=== PATIENT | male | born 1965 | race Caucasian/White ===

== ENCOUNTER 2018-09-16 10:35 | Inpatient (IN) | payer OTHER ==
[2018-09-16] MEDS ORDERED: SODIUM CHLORIDE 0.9% 1,000 ML IV STA (10:47)
[2018-09-16] MEDS ORDERED: LORazepam 2 MG/ML INJ IV STA ×2 (10:48→13:19)
[2018-09-16 10:50] LABS: Glucose,Whole Blood 150 mg/dL (75-99)
--- NOTE | 2018-09-16 10:56 | ED ---
Chest Pain HPI - General Source: patient, EMS, RN notes reviewed Mode of arrival: EMS Limitations: no limitations <Mark Lara - Last Filed: 09/16/18 14:49> <Trung Bowser - Last Filed: 09/16/18 15:30> - General Chief Complaint: Chest Pain Stated Complaint: chest pain Time Seen by Provider: 09/16/18 10:37 - History of Present Illness Initial Comments: This a 53-year-old male presents emergency Department chief complaint of chest pain or shortness breath. Patient states symptoms started this morning and were not exacerbated by anything. Patient states it's centralized chest pain nonradiating. Patient denies any back pain, headache, dizziness denies any abdominal pain including nausea and diarrhea constipation. Patient was given aspirin and 3 nitro by EMS states that it did help for bit but has returned. Patient denies any headache, dizziness, neck pain or neck stiffness. He does admit to slight cough. Patient denies any other complaints this time does have a history of hypertension and hyperlipidemia. Patient is not a daily smoker. (Mark Lara) - Related Data Home Medications Medication Instructions Recorded Confirmed Atenolol 100 mg PO DAILY 09/16/18 09/16/18 Cetirizine HCl [Zyrtec] 10 mg PO DAILY 09/16/18 09/16/18 Famotidine [Pepcid] 20 mg PO BID 09/16/18 09/16/18 Ferrous Sulfate [Feosol] 325 mg PO BID 09/16/18 09/16/18 Fluticasone Nasal [place] [Flonase 2 spr EA NOSTRIL DAILY 09/16/18 09/16/18 Nasal [place]] Ibuprofen [Motrin] 800 mg PO Q6H PRN 09/16/18 09/16/18 Losartan Potassium [Cozaar] 25 mg PO DAILY 09/16/18 09/16/18 amLODIPine [Norvasc] 10 mg PO DAILY 09/16/18 09/16/18 Allergies Allergy/AdvReac Type Severity Reaction Status Date / Time lisinopril AdvReac Cough Verified 09/16/18 10:50 Review of Systems ROS Other: All systems not noted in ROS Statement are negative. <Mark Lara - Last Filed: 09/16/18 14:49> ROS Other: All systems not noted in ROS Statement are negative. <Roskopp,Trung B - Last Filed: 09/16/18 15:30> ROS Statement: Those systems with pertinent positive or pertinent negative responses have been documented in the HPI. Past Medical History Past Medical History: Hypertension History of Any Multi-Drug Resistant Organisms: None Reported Past Psychological History: Anxiety Smoking Status: Never smoker Past Alcohol Use History: Daily Past Drug Use History: None Reported <Mark Lara - Last Filed: 09/16/18 14:49> General Exam Limitations: no limitations General appearance: alert, in no apparent distress Head exam: Present: atraumatic, normocephalic, normal inspection Eye exam: Present: normal appearance, PERRL, EOMI. Absent: scleral icterus, conjunctival injection, periorbital swelling ENT exam: Present: normal exam, normal oropharynx, mucous membranes moist Neck exam: Present: normal inspection, full ROM. Absent: tenderness, meningismus, lymphadenopathy Respiratory exam: Present: wheezes. Absent: normal lung sounds bilaterally, respiratory distress, rales, rhonchi, stridor Cardiovascular Exam: Present: normal rhythm, tachycardia, normal heart sounds. Absent: systolic murmur, diastolic murmur, rubs, gallop, clicks GI/Abdominal exam: Present: soft, normal bowel sounds. Absent: distended, tenderness, guarding, rebound, rigid <Mark Lara - Last Filed: 09/16/18 14:49> General appearance: alert, anxious, in distress Head exam: Present: atraumatic, normocephalic, normal inspection Eye exam: Present: normal appearance, PERRL, EOMI. Absent: scleral icterus, conjunctival injection, periorbital swelling ENT exam: Present: normal exam, mucous membranes moist Neck exam: Present: normal inspection. Absent: tenderness, meningismus, lymphadenopathy Respiratory exam: Present: accessory muscle use, decreased breath sounds, prolonged expiratory. Absent: normal lung sounds bilaterally, respiratory distress, rales, rhonchi, stridor Cardiovascular Exam: Present: normal rhythm, tachycardia, normal heart sounds. Absent: systolic murmur, diastolic murmur, rubs, gallop, clicks GI/Abdominal exam: Present: soft, normal bowel sounds. Absent: distended, tenderness, guarding, rebound, rigid Extremities exam: Present: normal inspection, full ROM, normal capillary refill. Absent: tenderness, pedal edema, joint swelling, calf tenderness Back exam: Present: normal inspection Neurological exam: Present: alert, oriented X3, CN II-XII intact Psychiatric exam: Present: normal affect, normal mood Skin exam: Present: warm, dry, intact, normal color. Absent: rash <Trung Bowser - Last Filed: 09/16/18 15:30> Course <Mark Lara - Last Filed: 09/16/18 14:49> <Trung Bowser - Last Filed: 09/16/18 15:30> Vital Signs 09/16/18 09/16/18 09/16/18 10:37 10:44 11:47 Temperature 100.1 F H Pulse Rate 114 H 101 H Respiratory 34 H 36 H 32 H Rate Blood Pressure 111/92 O2 Sat by Pulse 97 Oximetry 09/16/18 09/16/18 11:57 13:48 Temperature 99.8 F H Pulse Rate 103 H 77 Respiratory 28 H 38 H Rate Blood Pressure 171/99 O2 Sat by Pulse 92 L Oximetry - Reevaluation(s) Reevaluation #1: 09/16/18 12:11 multiple attempts at EKG ounces at this time secondary to patient being very anxious, having panic attack. (Mark Lara) Reevaluation #2: 09/16/18 13:24 patient's lactate is elevated along with an anion gap there is no clear evidence for infection at this time for sepsis chest x-ray, CT of the chest negative for acute cardiopulmonary process. Patient does not have any evidence of abdominal pain and no dysuria. Urine was just obtained waiting for results at this time, CT that those were ordered given patient's lactic acidosis. (Mark Lara) Reevaluation #3: 09/16/18 15:28 Spoke with ICU regarding admission, patient will be admitted to ICU (Trung Bowser) Reevaluation #4: 09/16/18 15:28 Patient is improving symptomatically, improvement with IV hydration and breathing treatments. Multiple metabolic abnormalities. (Trung Bowser) Procedures - Sepsis Sepsis Focused Exam #1 Time Sepsis Criteria Met: 14:56 <Trung Bowser - Last Filed: 09/16/18 15:30> Chest Pain MDM <Mark Lara - Last Filed: 09/16/18 14:49> <Trung Bowser - Last Filed: 09/16/18 15:30> - [facility] 53-year-old male presented for chest pain, fever. Patient will be admitted to ICU for hyponatremic, pending DTs, chest pain, lumbar burst fracture (Mark Lara) 53 male to ER for evaluation of chest pain fever shortness of breath. Patient has significant metabolic abnormalities found, will admit to ICU for further consult evaluation. Patient has history of significant alcohol disease, likely alcohol ketoacidosis like his hyponatremia secondary to be upon a tito, patient is fall with lumbar burst fracture. We'll admit for pending DVTs, treatment of lactic acidosis, at this point fevers likely related to DTs but will cover for antibiotics (Trung Bowser) Critical Care Time Critical Care Time: Yes Total Critical Care Time: 35 <Mark Lara - Last Filed: 09/16/18 14:49> Critical Care Time: Total of 35 minutes of critical care time more initially used to evaluate the patient, reviewed past medical history, review vitals and assess the patient. Labs, x-ray, EKG were initially ordered patient's found to have a lactic of 7.3 d-dimer 3.24 CT angios chest was ordered no acute cardiopulmonary process was identified. Patient did have noted fever further labs were added including urinalysis, acetaminophen, systolic acid, serum osmole, urine osmole secondary to hyponatremia. CT then pelvis revealed burst fracture and which the patient did state that he fell a few days ago. He is neurologically intact. Patient states discussed with hospitalist will be admitted to ICU policy and planning manager was updated on lab results and patient. Patient with consult to nephrology for hyponatremia. Patient was placed on seawall, Ativan protocol secondary to pending DTs with alcohol abuse. (Mark Lara) Disposition <Mark Lara - Last Filed: 09/16/18 14:49> Is patient prescribed a controlled substance at d/c from ED?: No <Trung Bowser - Last Filed: 09/16/18 15:30> Clinical Impression: Chest pain, Hyponatremia, Dehydration, Alcohol abuse, Lactic acidosis, Burst fracture of lumbar vertebra, Alcoholic ketoacidosis, Atypical chest pain Narrative: pending DTs (Mark Lara) Disposition: ADMITTED IP TO THIS HOSP Condition: Critical Referrals: [facility],Clinic [Primary Care Provider] - 1-2 days
[2018-09-16] MEDS ORDERED: ONDANSETRON 4 MG/2 ML VIAL IVP STA (11:15)
[2018-09-16] MEDS ORDERED: MORPHINE SULFATE 4 MG/ML SYRINGE IVP STA (11:15)
[2018-09-16] MEDS ORDERED: IPRATROPIUM-ALBUTEROL 3 ML NEB INHALATION STA (11:15)
[2018-09-16 11:40] LABS: ALT 68 U/L (21-72); AST 84 U/L (17-59); Albumin 4.8 g/dL (3.5-5.0); Alcohol <10 mg/dL; Alkaline Phosphatase 97 U/L (38-126); Anion Gap 21 mmol/L; Blood Urea Nitrogen 5 mg/dL (9-20); Calcium 9.3 mg/dL (8.4-10.2); Carbon Dioxide 18 mmol/L (22-30); Creatine Kinase 849 U/L (55-170); Glucose 126 mg/dL (74-99); Lipase 92 U/L (23-300); Magnesium 1.3 mg/dL (1.6-2.3); Potassium 5.3 mmol/L (3.5-5.1); Total Bilirubin 2.3 mg/dL (0.2-1.3); Total Protein 8.4 g/dL (6.3-8.2)
[2018-09-16 11:45] LABS: Basophils % (A) 0 %; Eosinophils # (A) 0.1 k/uL (0-0.7); Eosinophils % (A) 1 %; HCT 27.9 % (39.0-53.0); HGB 8.5 gm/dL (13.0-17.5); Hypochromasia Marked; Lymphocytes # (A) 0.5 k/uL (1.0-4.8); Lymphocytes % (A) 4 %; MCH 21.1 pg (25.0-35.0); MCHC 30.4 g/dL (31.0-37.0); MCV 69.2 fL (80.0-100.0); Microcytosis Marked; Monocytes # (A) 0.7 k/uL (0-1.0); Monocytes % (A) 6 %; Neutrophils # (A) 11.4 k/uL (1.3-7.7); Neutrophils % (A) 88 %; Platelet Count 312 k/uL (150-450); Poikilocytosis Slight; RBC 4.03 m/uL (4.30-5.90); RDW 15.5 % (11.5-15.5); WBC 12.9 k/uL (3.8-10.6)
[2018-09-16 11:52] LABS: Chloride 74 mmol/L (98-107); Sodium 113 mmol/L (137-145)
[2018-09-16 11:53] LABS: INR 1.1 (<1.2); Partial Thromboplastin Time 25.8 sec (22.0-30.0); Prothrombin Time 11.2 sec (9.0-12.0)
[2018-09-16] MEDS ORDERED: MAGNESIUM OXIDE 400 MG TAB PO STA (11:54)
[2018-09-16 12:00] LABS: D-Dimer 3.24 mg/L FEU (<0.60)
[2018-09-16] MEDS ORDERED: SODIUM CHLORIDE 0.9% 1,000 ML IV SCH (12:00)
[2018-09-16] MEDS ORDERED: SODIUM CHLORIDE 0.9% 500 ML 500 ML IV ONE (12:17)
[2018-09-16] MEDS ORDERED: SODIUM CHLORIDE 0.9% 1,000 ML IV ONE (12:17)
--- NOTE | 2018-09-16 12:55 | CT ---
EXAMINATION TYPE: CT chest angio for PE DATE OF EXAM: 09/16/2018 COMPARISON: None. HISTORY: Chest pain CT DLP: 427.8 mGycm Automated exposure control for dose reduction was used. CONTRAST: CT Chest for pulmonary embolism performed with with IV Contrast, patient injected with 75 mL of Isovu e 370. FINDINGS: There is atelectatic change present at the right lung base. There are tiny effusions presen t bilaterally. There is no significant axillary, mediastinal or hilar adenopathy. There is no evidence of pulmonary embolus. The aorta is normal in caliber without evidence of dissection. The heart is enlarged. There is no per icardial fluid seen. Visualized portions of the upper abdomen are unremarkable. IMPRESSION: 1. THIS EXAMINATION IS NEGATIVE FOR PULMONARY EMBOLUS. 2. TINY, BILATERAL EFFUSIONS. 3. BIBASILAR ATELECTASIS, GREATER ON THE RIGHT THAN THE LEFT.
--- NOTE | 2018-09-16 12:56 | XR ---
EXAMINATION TYPE: XR chest 2V DATE OF EXAM: 09/16/2018 HISTORY: Chest Pain. REFERENCE: Previous study dated 08/05/2014. FINDINGS: Enlarged. The lungs are clear. Pleural spaces are clear. IMPRESSION: MILD CARDIOMEGALY.
[2018-09-16] MEDS ORDERED: KETOROLAC 30 MG/ML 1 ML VIAL IVP STA (13:26)
[2018-09-16 13:53] LABS: VBG PH 7.35 (7.31-7.41)
[2018-09-16 14:10] LABS: Acetaminophen <10.0 ug/mL; Salicylate 1.3 mg/dL
--- NOTE | 2018-09-16 14:32 | CT ---
EXAMINATION TYPE: CT abdomen pelvis wo con DATE OF EXAM: 09/16/2018 HISTORY: Trouble breathing with pain. CT DLP: 676.3 mGycm. Automated Exposure Control for Dose Reduction was Utilized. TECHNIQUE: CT scan of the abdomen and pelvis is performed without oral or IV contrast. COMPARISON: NONE FINDINGS: Within the limitations of a non-contrast study, the following observations are made. LUNG BASES: Please refer to same day CTA chest study performed approximately 90 minutes earlier for c omplete details on lung bases. LIVER/GB: Liver is diffusely low dense consistent with fatty infiltration. PANCREAS: No significant abnormality is seen. SPLEEN: No significant abnormality is seen. ADRENALS: No significant abnormality is seen. KIDNEYS: Excretion of contrast from recent CTA chest study is seen in both kidneys without hydronephr osis. [place] catheter is decompressing bladder which is thus suboptimally evaluated. Bowel: Evaluation bowel is suboptimal secondary to lack of enteric contrast. No suspicious small or l arge bowel dilatation is clearly seen. Slightly prominent air-filled small and large bowel loops ante riorly are present in the upper abdomen. GENITAL ORGANS: No gross abnormality seen. LYMPH NODES: No greater than 1cm abdominal or pelvic lymph nodes are appreciated. OSSEOUS STRUCTURES: There is acute mild to moderate compression fracture L1 level, I do suspect acute component as there is vertical lucency just left of midline coronal images 71 and sagittal image 61, there is extension to the superior and inferior endplates. There is extension to the anterior endpla te axial image 36. No definitive extension to the posterior endplate is identified. There is minimal posterior retropulsion of the inferior L1 vertebra sagittal image 59 just left of midline mildly effa cing anterolateral thecal sac. OTHER: Small fat-containing right inguinal hernia. Mild vascular calcification of aorta extends into branch vessels. IMPRESSION: 1. There is acute mild to moderate burst type fracture involving the L1 vertebra superior and inferio r endplates as well as anterior endplate, minimal retropulsion of the left posterior aspect effacing anterolateral spinal canal is noted.
[2018-09-16 14:41] LABS: Appearance,Urine Clear (Clear); Bilirubin,Urine Negative (Negative); Blood,Urine Negative (Negative); Color,Urine Light Yellow; Glucose,Urine (UA) Negative (Negative); Ketones,Urine 1+ (Negative); Leukocyte Esterase,Urine Negative (Negative); Nitrite,Urine Negative (Negative); Protein,Urine Negative (Negative); Urobilinogen,Urine <2.0 mg/dL (<2.0)
[2018-09-16] MEDS ORDERED: LORazepam 2 MG/ML INJ IV PRN ×2 (14:53)
[2018-09-16] MEDS ORDERED: THIAMINE 100 MG/ML 2 ML VIAL IM STA (14:53)
[2018-09-16] MEDS ORDERED: NALOXONE 0.4 MG/ML 1 ML VIAL IV PRN (14:53)
[2018-09-16] MEDS ORDERED: ACETAMINOPHEN TAB 325 MG TAB PO PRN (14:53)
--- NOTE | 2018-09-16 14:57 | ED ---
Medical Decision Making - Lab Data Result diagrams: 09/16/18 11:14 09/16/18 11:14 Lab Results 09/16/18 09/16/18 09/16/18 Range/Units 10:45 11:14 11:14 WBC 12.9 H (3.8-10.6) k/uL RBC 4.03 L (4.30-5.90) m/uL Hgb 8.5 L (13.0-17.5) gm/dL Hct 27.9 L (39.0-53.0) % MCV 69.2 L (80.0-100.0) fL MCH 21.1 L (25.0-35.0) pg MCHC 30.4 L (31.0-37.0) g/dL RDW 15.5 (11.5-15.5) % Plt Count 312 (150-450) k/uL Neutrophils % 88 % Lymphocytes % 4 % Monocytes % 6 % Eosinophils % 1 % Basophils % 0 % Neutrophils # 11.4 H (1.3-7.7) k/uL Lymphocytes # 0.5 L (1.0-4.8) k/uL Monocytes # 0.7 (0-1.0) k/uL Eosinophils # 0.1 (0-0.7) k/uL Basophils # 0.0 (0-0.2) k/uL Hypochromasia Marked Poikilocytosis Slight Microcytosis Marked PT (9.0-12.0) sec INR (<1.2) APTT (22.0-30.0) sec D-Dimer (<0.60) mg/L FEU VBG pH (7.31-7.41) VBG pCO2 (37-51) mmHg VBG HCO3 (24-28) mmol/L Sodium 113 L* (137-145) mmol/L Potassium 5.3 H (3.5-5.1) mmol/L Chloride 74 L* (98-107) mmol/L Carbon Dioxide 18 L (22-30) mmol/L Anion Gap 21 mmol/L BUN 5 L (9-20) mg/dL Creatinine 0.80 (0.66-1.25) mg/dL Est GFR (CKD-EPI)AfAm >90 (>60 ml/min/1.73 sqM) Est GFR (CKD-EPI)NonAf >90 (>60 ml/min/1.73 sqM) Glucose 126 H (74-99) mg/dL POC Glucose (mg/dL) 150 H (75-99) mg/dL POC Glu Industrial Engineering Technician ID Jamaaljuly Plasma Lactic Acid [place] (0.7-2.0) mmol/L Calcium 9.3 (8.4-10.2) mg/dL Magnesium 1.3 L (1.6-2.3) mg/dL Total Bilirubin 2.3 H (0.2-1.3) mg/dL AST 84 H (17-59) U/L ALT 68 (21-72) U/L Alkaline Phosphatase 97 (38-126) U/L Creatine Kinase 849 H (55-170) U/L Troponin I (0.000-0.034) ng/mL Total Protein 8.4 H (6.3-8.2) g/dL Albumin 4.8 (3.5-5.0) g/dL Lipase 92 (23-300) U/L Urine Color Urine Appearance (Clear) Urine pH (5.0-8.0) Ur Specific [place] (1.001-1.035) Urine Protein (Negative) Urine Glucose (UA) (Negative) Urine Ketones (Negative) Urine Blood (Negative) Urine Nitrite (Negative) Urine Bilirubin (Negative) Urine Urobilinogen (<2.0) mg/dL Ur Leukocyte Esterase (Negative) Salicylates mg/dL Acetaminophen ug/mL Serum Alcohol <10 mg/dL 09/16/18 09/16/18 09/16/18 Range/Units 11:14 11:14 11:14 WBC (3.8-10.6) k/uL RBC (4.30-5.90) m/uL Hgb (13.0-17.5) gm/dL Hct (39.0-53.0) % MCV (80.0-100.0) fL MCH (25.0-35.0) pg MCHC (31.0-37.0) g/dL RDW (11.5-15.5) % Plt Count (150-450) k/uL Neutrophils % % Lymphocytes % % Monocytes % % Eosinophils % % Basophils % % Neutrophils # (1.3-7.7) k/uL Lymphocytes # (1.0-4.8) k/uL Monocytes # (0-1.0) k/uL Eosinophils # (0-0.7) k/uL Basophils # (0-0.2) k/uL Hypochromasia Poikilocytosis Microcytosis PT 11.2 (9.0-12.0) sec INR 1.1 (<1.2) APTT 25.8 (22.0-30.0) sec D-Dimer 3.24 H (<0.60) mg/L FEU VBG pH (7.31-7.41) VBG pCO2 (37-51) mmHg VBG HCO3 (24-28) mmol/L Sodium (137-145) mmol/L Potassium (3.5-5.1) mmol/L Chloride (98-107) mmol/L Carbon Dioxide (22-30) mmol/L Anion Gap mmol/L BUN (9-20) mg/dL Creatinine (0.66-1.25) mg/dL Est GFR (CKD-EPI)AfAm (>60 ml/min/1.73 sqM) Est GFR (CKD-EPI)NonAf (>60 ml/min/1.73 sqM) Glucose (74-99) mg/dL POC Glucose (mg/dL) (75-99) mg/dL POC Glu Industrial Engineering Technician ID Plasma Lactic Acid [place] 7.9 H* (0.7-2.0) mmol/L Calcium (8.4-10.2) mg/dL Magnesium (1.6-2.3) mg/dL Total Bilirubin (0.2-1.3) mg/dL AST (17-59) U/L ALT (21-72) U/L Alkaline Phosphatase (38-126) U/L Creatine Kinase (55-170) U/L Troponin I <0.012 (0.000-0.034) ng/mL Total Protein (6.3-8.2) g/dL Albumin (3.5-5.0) g/dL Lipase (23-300) U/L Urine Color Urine Appearance (Clear) Urine pH (5.0-8.0) Ur Specific [place] (1.001-1.035) Urine Protein (Negative) Urine Glucose (UA) (Negative) Urine Ketones (Negative) Urine Blood (Negative) Urine Nitrite (Negative) Urine Bilirubin (Negative) Urine Urobilinogen (<2.0) mg/dL Ur Leukocyte Esterase (Negative) Salicylates mg/dL Acetaminophen ug/mL Serum Alcohol mg/dL 09/16/18 09/16/18 09/16/18 Range/Units 11:14 13:15 13:35 WBC (3.8-10.6) k/uL RBC (4.30-5.90) m/uL Hgb (13.0-17.5) gm/dL Hct (39.0-53.0) % MCV (80.0-100.0) fL MCH (25.0-35.0) pg MCHC (31.0-37.0) g/dL RDW (11.5-15.5) % Plt Count (150-450) k/uL Neutrophils % % Lymphocytes % % Monocytes % % Eosinophils % % Basophils % % Neutrophils # (1.3-7.7) k/uL Lymphocytes # (1.0-4.8) k/uL Monocytes # (0-1.0) k/uL Eosinophils # (0-0.7) k/uL Basophils # (0-0.2) k/uL Hypochromasia Poikilocytosis Microcytosis PT (9.0-12.0) sec INR (<1.2) APTT (22.0-30.0) sec D-Dimer (<0.60) mg/L FEU VBG pH 7.35 (7.31-7.41) VBG pCO2 39 (37-51) mmHg VBG HCO3 21 L (24-28) mmol/L Sodium (137-145) mmol/L Potassium (3.5-5.1) mmol/L Chloride (98-107) mmol/L Carbon Dioxide (22-30) mmol/L Anion Gap mmol/L BUN (9-20) mg/dL Creatinine (0.66-1.25) mg/dL Est GFR (CKD-EPI)AfAm (>60 ml/min/1.73 sqM) Est GFR (CKD-EPI)NonAf (>60 ml/min/1.73 sqM) Glucose (74-99) mg/dL POC Glucose (mg/dL) (75-99) mg/dL POC Glu Industrial Engineering Technician ID Plasma Lactic Acid [place] (0.7-2.0) mmol/L Calcium (8.4-10.2) mg/dL Magnesium (1.6-2.3) mg/dL Total Bilirubin (0.2-1.3) mg/dL AST (17-59) U/L ALT (21-72) U/L Alkaline Phosphatase (38-126) U/L Creatine Kinase (55-170) U/L Troponin I (0.000-0.034) ng/mL Total Protein (6.3-8.2) g/dL Albumin (3.5-5.0) g/dL Lipase (23-300) U/L Urine Color Light Yellow Urine Appearance Clear (Clear) Urine pH 6.0 (5.0-8.0) Ur Specific [place] 1.010 (1.001-1.035) Urine Protein Negative (Negative) Urine Glucose (UA) Negative (Negative) Urine Ketones 1+ H (Negative) Urine Blood Negative (Negative) Urine Nitrite Negative (Negative) Urine Bilirubin Negative (Negative) Urine Urobilinogen <2.0 (<2.0) mg/dL Ur Leukocyte Esterase Negative (Negative) Salicylates 1.3 mg/dL Acetaminophen <10.0 ug/mL Serum Alcohol mg/dL Disposition Clinical Impression: Chest pain, Hyponatremia, Dehydration, Alcohol abuse, Lactic acidosis, Burst fracture of lumbar vertebra Disposition: ADMITTED IP TO THIS HOSP Condition: Critical Referrals: [facility],Clinic [Primary Care Provider] - 1-2 days Procedures - Sepsis Sepsis Focused Exam #1 Time Sepsis Criteria Met: 14:56 Sepsis Focused Exam Time: 14:57 Sepsis Focused Exam Complete: Yes Vital Signs & RN Notes Reviewed: Yes Capillary Refill: < 2 Seconds: Fingers, Toes Peripheral Pulses: Normal: Radial (R), Radial (L), Posterior Tibialis (R), Posterior Tibialis (L), Dorsalis Pedis (R), Dorsalis Pedis (L) Skin Color: Normal for Patient Respiratory Exam: normal lung sounds Cardiovascular Exam: tachycardia
[2018-09-16] MEDS ORDERED: LACTATED RINGERS 1,000 ML IV SCH ×3 (15:30→21:15)
[2018-09-16] MEDS: LORazepam 2 MG/ML INJ IV PRN ×2 (15:33→21:44)
[2018-09-16 18:48] LABS: ALT 56 U/L (21-72); AST 105 U/L (17-59); Albumin 4.4 g/dL (3.5-5.0); Alkaline Phosphatase 78 U/L (38-126); Anion Gap 14 mmol/L; Blood Urea Nitrogen 5 mg/dL (9-20); Calcium 8.8 mg/dL (8.4-10.2); Carbon Dioxide 18 mmol/L (22-30); Chloride 82 mmol/L (98-107); Glucose 108 mg/dL (74-99); Magnesium 1.7 mg/dL (1.6-2.3); Phosphorus 2.9 mg/dL (2.5-4.5); Potassium 5.2 mmol/L (3.5-5.1); Total Bilirubin 2.2 mg/dL (0.2-1.3); Total Protein 7.8 g/dL (6.3-8.2)
[2018-09-16 18:52] LABS: Sodium 114 mmol/L (137-145)
[2018-09-16] MEDS: MAGNESIUM SULFATE-D5W PMX 1 GM in DEXTROSE/WATER 1 100ML.BAG IVPB SCH ×2 (20:55→22:14)
[2018-09-16] MEDS ORDERED: LACTATED RINGERS 1,000 ML IV ONE (21:13)
[2018-09-17 03:23] LABS: Glucose,Whole Blood 125 mg/dL (75-99)
[2018-09-17 05:25] LABS: Anisocytosis Slight; Basophils % (A) 0 %; Eosinophils # (A) 0.1 k/uL (0-0.7); Eosinophils % (A) 1 %; HCT 24.3 % (39.0-53.0); HGB 7.3 gm/dL (13.0-17.5); Hypochromasia Marked; Lymphocytes # (A) 0.3 k/uL (1.0-4.8); Lymphocytes % (A) 4 %; MCH 20.6 pg (25.0-35.0); MCV 68.8 fL (80.0-100.0); Mean Platelet Volume 6.1; Microcytosis Marked; Monocytes # (A) 0.4 k/uL (0-1.0); Monocytes % (A) 6 %; Neutrophils # (A) 5.9 k/uL (1.3-7.7); Neutrophils % (A) 88 %; Platelet Count 206 k/uL (150-450); RBC 3.53 m/uL (4.30-5.90); RDW 16.5 % (11.5-15.5); WBC 6.8 k/uL (3.8-10.6)
[2018-09-17 05:40] LABS: Anion Gap 10 mmol/L; Blood Urea Nitrogen 5 mg/dL (9-20); Calcium 8.7 mg/dL (8.4-10.2); Carbon Dioxide 24 mmol/L (22-30); Chloride 88 mmol/L (98-107); Glucose 94 mg/dL (74-99); Magnesium 2.3 mg/dL (1.6-2.3); Phosphorus 2.8 mg/dL (2.5-4.5); Sodium 122 mmol/L (137-145)
[2018-09-17] MEDS: THIAMINE 100 MG TAB PO SCH ×2 (06:59→17:04)
--- NOTE | 2018-09-17 07:03 | XR ---
EXAMINATION TYPE: XR chest 1V portable DATE OF EXAM: 09/17/2018 HISTORY: SOB . REFERENCE: Previous study dated 09/16/2018. FINDINGS: There is some left basilar atelectasis. There is platelike atelectasis in the right midlung zone. The heart is not enlarged. Pleural spaces are clear. IMPRESSION: BILATERAL AREAS OF PLATELIKE ATELECTASIS.
[2018-09-17] MEDS ORDERED: PANTOPRAZOLE 40 MG/10 ML VIAL IV SCH ×2 (09:00)
--- NOTE | 2018-09-17 11:09 | P.CNPUL ---
History of Present Illness Consult date: 09/17/18 Reason for consult: other (Severe hyponatremia) Chief complaint: Chest pain shortness of breath and weakness. History of present illness: This is a 53-year-old white male, history of alcohol abuse, patient drinks beer on a daily basis. Patient was seen in the ER last night mostly complaining of generalized chest pain, weakness, fatigue, malaise, patient has no headaches no blurred vision no dizziness, had no GI symptoms no nausea no vomiting no abdominal pain. Patient is not on any diuretics, he had no symptoms of nausea vomiting or diarrhea. Patient was given aspirin and nitroglycerin by EMS, did not seem to help him much. Patient was evaluated in the ER, and his workup was basically unremarkable except for low sodium, low serum osmolality, and urine osmolality was 228. His sodium on presentation was 113, and this morning is 122. Patient stated to me that he was told in the past that his sodium runs a bit low. But never had an admission for hyponatremia. Again the patient is not on any diuretics, he is not on any psychiatric medications, he is not diabetic, and he is not known to have any history of malignancy. Workup for the chest pain was basically nondiagnostic. Patient was found to have elevated lactic acid and elevated d-dimer. But CT of the chest was negative. No evidence of pulmonary embolism, there was evidence of bibasilar atelectasis. CT of the abdomen showed mild to moderate compression fracture of L1 level. Clinically however the patient had no back pain. In the ER, considering his elevated lactic acid, patient was given fluid boluses in the form of lactated Ringer's. His fluids were placed on hold when his sodium came back at 122 earlier this morning. During my evaluation, the patient was basically asymptomatic. He told me that he felt great, he had no chest pain, no shortness of breath, does not feel weak anymore, and he is basically back to his baseline. However his hemoglobin on admission was 8.5, and it is presently 7.3. Obviously the patient will need workup for his anemia which is likely acute. Patient denies any melena or hematemesis. Denies any history of anemia. Drug screen on admission was negative. Review of Systems Constitutional: Denies weight loss, no fever, no chills. Eyes: Denies blurred vision and diplopia or lid lag. ENT: Denies earache sore throat, Respiratory: Mostly chest pain on presentation to the ER, but presently asymptomatic denies any chest pain cough wheezing or shortness of breath. Cardiovascular: Denies any syncope, denies any palpitations. Endocrine: Denies any symptoms of hyper or hypothyroidism,. Gastrointestinal: Denies any abdominal pain at present, no nausea no vomiting, no melena, no hematemesis. Genitourinary: Denies frequency urgency or hematuria Musculoskeletal: No arthralgia, no myalgia, no limitation in range of motion.. Skin: Denies any erythema or rashes. No pruritus. Neurological: No headache no blurred vision no dizziness no syncope. Past Medical History Past Medical History: Hyperlipidemia, Hypertension Additional Past Medical History / Comment(s): ETOH, Rib Fractures, Frequent Falls History of Any Multi-Drug Resistant Organisms: None Reported Additional Past Surgical History / Comment(s): Pt Poor Historian Past Psychological History: Anxiety Smoking Status: Never smoker Past Alcohol Use History: Daily Past Drug Use History: None Reported Medications and Allergies Home Medications Medication Instructions Recorded Confirmed Type Atenolol 100 mg PO DAILY 09/16/18 09/16/18 History Cetirizine HCl [Zyrtec] 10 mg PO DAILY 09/16/18 09/16/18 History Famotidine [Pepcid] 20 mg PO BID 09/16/18 09/16/18 History Ferrous Sulfate [Feosol] 325 mg PO BID 09/16/18 09/16/18 History Fluticasone Nasal [place] [Flonase 2 spr EA NOSTRIL DAILY 09/16/18 09/16/18 History Nasal [place]] Ibuprofen [Motrin] 800 mg PO Q6H PRN 09/16/18 09/16/18 History Losartan Potassium [Cozaar] 25 mg PO DAILY 09/16/18 09/16/18 History amLODIPine [Norvasc] 10 mg PO DAILY 09/16/18 09/16/18 History Allergies Allergy/AdvReac Type Severity Reaction Status Date / Time lisinopril AdvReac Cough Verified 09/16/18 10:50 Physical Exam Vitals: Vital Signs Temp Pulse Resp BP Pulse Ox 09/17/18 08:00 98.3 F 101 H 24 151/91 99 09/17/18 07:00 85 13 114/90 99 09/17/18 06:00 94 24 123/67 99 09/17/18 05:00 92 14 101/85 99 09/17/18 04:00 98.1 F 76 13 116/70 99 09/17/18 03:00 99 13 131/83 99 09/17/18 02:00 81 11 L 113/77 99 09/17/18 01:00 90 11 L 122/77 98 09/17/18 00:12 104 H 26 H 139/97 99 09/17/18 00:00 97.6 F 93 15 121/76 98 09/16/18 23:30 79 16 117/70 98 09/16/18 23:00 71 19 117/70 96 09/16/18 22:30 85 19 98 09/16/18 22:00 73 15 123/69 100 09/16/18 21:00 71 15 119/69 100 09/16/18 20:30 75 12 130/70 98 09/16/18 20:00 98.5 F 73 14 119/77 100 09/16/18 19:30 75 13 131/71 97 09/16/18 19:00 83 13 141/110 95 09/16/18 18:30 98.4 F 101 H 20 152/101 96 09/16/18 18:00 103 H 16 112/72 96 09/16/18 17:30 99.7 F H 93 15 124/108 97 09/16/18 17:20 98 09/16/18 17:00 99 15 09/16/18 16:58 97 11 L 09/16/18 16:33 97.8 F 80 30 H 123/75 96 09/16/18 13:48 99.8 F H 77 38 H 171/99 92 L 09/16/18 11:57 103 H 28 H 09/16/18 11:47 101 H 32 H Intake and Output 09/16/18 09/17/18 09/17/18 22:59 06:59 14:59 Intake Total 1400 425 Output Total 3730 2150 100 Balance -6107 -0165 -100 Intake: IV 1400 425 Lactated Ringers 1,000 ml 300 225 @ 75 mls/hr IV .[id number] SYLVIE Rx#:[id number] Lactated Ringers 1,000 ml 1000 @ 999 mls/hr IV .Q1H1M SYLVIE Rx#:[id number] Magnesium Sulfate-D5w Pmx 200 1 gm In Dextrose/Water 1 100ml.bag @ 100 mls/hr IVPB Q1H SYLVIE Rx#: [id number] cefTRIAXone 1 gm In 100 Sodium Chloride 0.9% 50 ml @ 100 mls/hr IVPB ONCE STA Rx#:[id number] Output: Urine 3730 2150 100 Uretheral ([place]) 1100 Other: Voiding Method Indwelling Catheter Indwelling Catheter Weight 84.3 kg Physical Exam: Revealed a 53-year-old white male in no distress. Head: Atraumatic normocephalic. HEENT:[Neck is supple.] [No neck masses.] [No thyromegaly.] [No JVD.] PERRLA, EOMI, no icterus. Chest: [Clear throughout, no crackles, no rhonchi, no wheezes.] Cardiac Exam: [Normal S1 and S2, no S3 gallop, no murmur.] Abdomen: [Soft, nontender, no megaly, no rebound, no guarding, normal bowel sounds.] Extremities: [No clubbing, no edema, no cyanosis.] Neurological Exam: [No focal neurologic deficit. Alert oriented 3. Psychiatric: Normal mood, affect and mental status examination. Lymphatics: No lymphadenopathy. Skin: No rashes.] Results - Laboratory Findings CBC and BMP: 09/17/18 04:43 09/17/18 09:17 PT/INR, D-dimer PT 11.2 sec (9.0-12.0) 09/16/18 11:14 INR 1.1 (<1.2) 09/16/18 11:14 D-Dimer 3.24 mg/L FEU (<0.60) H 09/16/18 11:14 Abnormal lab findings: Abnormal Labs 09/16/18 09/16/18 09/16/18 10:45 11:14 11:14 WBC 12.9 H RBC 4.03 L Hgb 8.5 L Hct 27.9 L MCV 69.2 L MCH 21.1 L MCHC 30.4 L RDW Neutrophils # 11.4 H Lymphocytes # 0.5 L D-Dimer VBG HCO3 Sodium 113 L* Potassium 5.3 H Chloride 74 L* Carbon Dioxide 18 L BUN 5 L Creatinine Glucose 126 H POC Glucose (mg/dL) 150 H Osmolality Plasma Lactic Acid [place] Magnesium 1.3 L Total Bilirubin 2.3 H AST 84 H Creatine Kinase 849 H Total Protein 8.4 H Urine Ketones 09/16/18 09/16/18 09/16/18 11:14 11:14 11:14 WBC RBC Hgb Hct MCV MCH MCHC RDW Neutrophils # Lymphocytes # D-Dimer 3.24 H VBG HCO3 Sodium Potassium Chloride Carbon Dioxide BUN Creatinine Glucose POC Glucose (mg/dL) Osmolality 228 L* Plasma Lactic Acid [place] 7.9 H* Magnesium Total Bilirubin AST Creatine Kinase Total Protein Urine Ketones 09/16/18 09/16/18 09/16/18 13:15 13:35 15:30 WBC RBC Hgb Hct MCV MCH MCHC RDW Neutrophils # Lymphocytes # D-Dimer VBG HCO3 21 L Sodium Potassium Chloride Carbon Dioxide BUN Creatinine Glucose POC Glucose (mg/dL) Osmolality Plasma Lactic Acid [place] 3.5 H* Magnesium Total Bilirubin AST Creatine Kinase Total Protein Urine Ketones 1+ H 09/16/18 09/16/18 09/17/18 18:10 23:59 03:12 WBC RBC Hgb Hct MCV MCH MCHC RDW Neutrophils # Lymphocytes # D-Dimer VBG HCO3 Sodium 114 L* 120 L Potassium 5.2 H Chloride 82 L Carbon Dioxide 18 L BUN 5 L Creatinine 0.64 L Glucose 108 H POC Glucose (mg/dL) 125 H Osmolality Plasma Lactic Acid [place] Magnesium Total Bilirubin 2.2 H AST 105 H Creatine Kinase Total Protein Urine Ketones 09/17/18 09/17/18 09/17/18 04:43 04:43 09:17 WBC RBC 3.53 L Hgb 7.3 L Hct 24.3 L MCV 68.8 L MCH 20.6 L MCHC 30.0 L RDW 16.5 H Neutrophils # Lymphocytes # 0.3 L D-Dimer VBG HCO3 Sodium 122 L 125 L Potassium Chloride 88 L Carbon Dioxide BUN 5 L Creatinine 0.61 L Glucose POC Glucose (mg/dL) Osmolality Plasma Lactic Acid [place] Magnesium Total Bilirubin AST Creatine Kinase Total Protein Urine Ketones - Diagnostic Findings CT scan - chest: image reviewed (As noted in HPI.) Assessment and Plan Assessment: Impression: 1 acute hyponatremia, possible underlying SIADH. Although it could be but no tito related hyponatremia and mostly related to excessive consumption of beer. Patient was noted to have hypoosmolar hyponatremia, and his urine osmolality was 228 on admission. With relatively elevated urine sodium. 2 possible chronic anemia since the patient is noted to be anemic today, and he seems to be on iron. This will need to be further investigated. To rule out underlying malignancy. GI consultation will be initiated. And stool will be checked for Hemoccult. In the meantime continue Protonix. 3 history of alcohol abuse, patient drinks beer on a daily basis. Continue alcohol withdrawal protocol. 4 acute lactic acidosis responded well to fluid boluses, no clear-cut evidence of infection, patient is empirically on antibiotics, cultures are pending, will continue antibiotics for now. Until cultures of blood and urine are available. Recommendation: Continue to monitor the patient in the ICU. Nephrology was cons ulted, GI will be consulted, his sodium is being corrected and today's sodium this morning was 122. Presently the patient is not receiving any fluids, may consider even placing the patient on D5W. To slow down the rapid correction of his hyponatremia. We'll continue to follow. Time with Patient: Greater than 30
--- NOTE | 2018-09-17 12:29 | P.HPIM ---
History of Present Illness 53-year-old male with history of alcohol abuse, although although he denied using alcohol on daily basis it appears like patient does drink alcohol on a daily basis as he is having active withdrawals and that he admitted to the [facility] staff he does drink alcohol on a daily basis came in with complains of for epigastric abdominal pain and retrosternal pain pressure-like sensation nonradiating denied any diaphoresis associated with that patient does have lightheadedness patient complains that he had a fall and hurt his back. Patient pain appears to be secondary to gastroesophageal reflux disease or peptic ulcer disease or musculoskeletal. Patient is found to be severely hyponatremic with serum sodium of 113. Patient drinks about 6-8 beers may be more every day. Patient creatinine went up to 125 today because of which I believe nephrology is holding off on IV fluids, patient is actively having withdrawals at this time patient is on Protonix thiamine multivitamin supplementation and patient is on Ativan CIWA protocol. Patient has a sitter at this time. Patient denies any smoking. Patient does have lactic acidosis although there is no evidence of infection patient has atelectasis in the lung the but no pneumonia no bronchitis vacation does have gurgling due to excess secretions, patient doesn't have any UTI patient will not require any antibiotics his lactic acidosis is secondary to intravascular 1 and depletion for which patient received IV fluids and lactic acid has come down from 7.5-3.5 on repeat the lactic acid again today. EKG did not show any acute ST-T wave changes facet of troponin is negative lipid [place] of troponin patient chest pain appears to be noncardiac. Patient says he fell yesterday which is secondary to his dizziness. Review of Systems REVIEW OF SYSTEMS: CONSTITUTIONAL: No fever, no malaise, no fatigue. HEENT: No recent visual problems or hearing problems. Denied any sore throat. CARDIOVASCULAR: No chest pain, orthopnea, PND, no palpitations, PULMONARY: No shortness of breath, no cough, no hemoptysis. GASTROINTESTINAL: No diarrhea, no nausea, no vomiting, no abdominal pain. NEUROLOGICAL: No headaches, no weakness, no numbness. HEMATOLOGICAL: Denies any bleeding or petechiae. GENITOURINARY: Denies any burning micturition, frequency, or urgency. MUSCULOSKELETAL/RHEUMATOLOGICAL: Denies any joint pain, swelling, or any muscle pain. ENDOCRINE: Denies any polyuria or polydipsia. The rest of the 14-point review of systems is negative. Past Medical History Past Medical History: Hyperlipidemia, Hypertension Additional Past Medical History / Comment(s): ETOH, Rib Fractures, Frequent Falls History of Any Multi-Drug Resistant Organisms: None Reported Additional Past Surgical History / Comment(s): Pt Poor Historian Past Psychological History: Anxiety Smoking Status: Never smoker Past Alcohol Use History: Daily Past Drug Use History: None Reported Medications and Allergies Home Medications Medication Instructions Recorded Confirmed Type Atenolol 100 mg PO DAILY 09/16/18 09/16/18 History Cetirizine HCl [Zyrtec] 10 mg PO DAILY 09/16/18 09/16/18 History Famotidine [Pepcid] 20 mg PO BID 09/16/18 09/16/18 History Ferrous Sulfate [Feosol] 325 mg PO BID 09/16/18 09/16/18 History Fluticasone Nasal [place] [Flonase 2 spr EA NOSTRIL DAILY 09/16/18 09/16/18 History Nasal [place]] Ibuprofen [Motrin] 800 mg PO Q6H PRN 09/16/18 09/16/18 History Losartan Potassium [Cozaar] 25 mg PO DAILY 09/16/18 09/16/18 History amLODIPine [Norvasc] 10 mg PO DAILY 09/16/18 09/16/18 History Allergies Allergy/AdvReac Type Severity Reaction Status Date / Time lisinopril AdvReac Cough Verified 09/16/18 10:50 Physical Exam Vitals: Vital Signs Temp Pulse Resp BP Pulse Ox 09/17/18 11:00 86 16 118/94 99 09/17/18 10:00 91 12 125/87 99 09/17/18 09:00 86 15 128/80 100 09/17/18 08:00 98.3 F 101 H 24 151/91 99 09/17/18 07:00 85 13 114/90 99 09/17/18 06:00 94 24 123/67 99 09/17/18 05:00 92 14 101/85 99 09/17/18 04:00 98.1 F 76 13 116/70 99 09/17/18 03:00 99 13 131/83 99 09/17/18 02:00 81 11 L 113/77 99 09/17/18 01:00 90 11 L 122/77 98 06/02/19 00:12 104 H 26 H 139/97 99 09/17/18 00:00 97.6 F 93 15 121/76 98 09/16/18 23:30 79 16 117/70 98 09/16/18 23:00 71 19 117/70 96 09/16/18 22:30 85 19 98 09/16/18 22:00 73 15 123/69 100 09/16/18 21:00 71 15 119/69 100 09/16/18 20:30 75 12 130/70 98 09/16/18 20:00 98.5 F 73 14 119/77 100 09/16/18 19:30 75 13 131/71 97 09/16/18 19:00 83 13 141/110 95 09/16/18 18:30 98.4 F 101 H 20 152/101 96 09/16/18 18:00 103 H 16 112/72 96 09/16/18 17:30 99.7 F H 93 15 124/108 97 09/16/18 17:20 98 09/16/18 17:00 99 15 09/16/18 16:58 97 11 L 09/16/18 16:33 97.8 F 80 30 H 123/75 96 09/16/18 13:48 99.8 F H 77 38 H 171/99 92 L Intake and Output 09/16/18 09/17/18 09/17/18 22:59 06:59 14:59 Intake Total 1400 425 50 Output Total 3730 2150 260 Balance -8003 -4756 -210 Intake: IV 1400 425 Lactated Ringers 1,000 ml 300 225 @ 75 mls/hr IV .[id number] SYLVIE Rx#:[id number] Lactated Ringers 1,000 ml 1000 @ 999 mls/hr IV .Q1H1M SYLVIE Rx#:[id number] Magnesium Sulfate-D5w Pmx 200 1 gm In Dextrose/Water 1 100ml.bag @ 100 mls/hr IVPB Q1H SYLVIE Rx#: [id number] cefTRIAXone 1 gm In 100 Sodium Chloride 0.9% 50 ml @ 100 mls/hr IVPB ONCE STA Rx#:[id number] Oral 50 Output: Urine 3730 2150 260 Uretheral ([place]) 1100 Other: Voiding Method Indwelling Catheter Indwelling Catheter Indwelling Catheter Weight 84.3 kg PHYSICAL EXAMINATION: GENERAL: The patient is alert and oriented x3, not in any acute distress. Patient does have a typical alcoholic pale appearance doesn't appear to have withdrawals HEENT: Pupils are round and equally reacting to light. EOMI. No scleral icterus. No conjunctival pallor. Normocephalic, atraumatic. No pharyngeal erythema. No thyromegaly. CARDIOVASCULAR: S1 and S2 present. No murmurs, rubs, or gallops. PULMONARY: Chest is clear to auscultation, no wheezing or crackles. ABDOMEN: Soft, nontender, nondistended, normoactive bowel sounds. No palpable organomegaly. MUSCULOSKELETAL: No joint swelling or deformity. EXTREMITIES: No cyanosis, clubbing, or pedal edema. NEUROLOGICAL: Gross neurological examination did not reveal any focal deficits. SKIN: No rashes. Results CBC & Chem 7: 09/17/18 04:43 09/17/18 09:17 Labs: Abnormal Lab Results - Last 24 Hours (Table) 09/16/18 09/16/18 09/16/18 Range/Units 11:14 13:15 13:35 RBC (4.30-5.90) m/uL Hgb (13.0-17.5) gm/dL Hct (39.0-53.0) % MCV (80.0-100.0) fL MCH (25.0-35.0) pg MCHC (31.0-37.0) g/dL RDW (11.5-15.5) % Lymphocytes # (1.0-4.8) k/uL VBG HCO3 21 L (24-28) mmol/L Sodium (137-145) mmol/L Potassium (3.5-5.1) mmol/L Chloride (98-107) mmol/L Carbon Dioxide (22-30) mmol/L BUN (9-20) mg/dL Creatinine (0.66-1.25) mg/dL Glucose (74-99) mg/dL POC Glucose (mg/dL) (75-99) mg/dL Osmolality 228 L* (280-301) mosm/kg Plasma Lactic Acid [place] (0.7-2.0) mmol/L Total Bilirubin (0.2-1.3) mg/dL AST (17-59) U/L Urine Ketones 1+ H (Negative) 09/16/18 09/16/18 09/16/18 Range/Units 15:30 18:10 23:59 RBC (4.30-5.90) m/uL Hgb (13.0-17.5) gm/dL Hct (39.0-53.0) % MCV (80.0-100.0) fL MCH (25.0-35.0) pg MCHC (31.0-37.0) g/dL RDW (11.5-15.5) % Lymphocytes # (1.0-4.8) k/uL VBG HCO3 (24-28) mmol/L Sodium 114 L* 120 L (137-145) mmol/L Potassium 5.2 H (3.5-5.1) mmol/L Chloride 82 L (98-107) mmol/L Carbon Dioxide 18 L (22-30) mmol/L BUN 5 L (9-20) mg/dL Creatinine 0.64 L (0.66-1.25) mg/dL Glucose 108 H (74-99) mg/dL POC Glucose (mg/dL) (75-99) mg/dL Osmolality (280-301) mosm/kg Plasma Lactic Acid [place] 3.5 H* (0.7-2.0) mmol/L Total Bilirubin 2.2 H (0.2-1.3) mg/dL AST 105 H (17-59) U/L Urine Ketones (Negative) 09/17/18 09/17/18 09/17/18 Range/Units 03:12 04:43 04:43 RBC 3.53 L (4.30-5.90) m/uL Hgb 7.3 L (13.0-17.5) gm/dL Hct 24.3 L (39.0-53.0) % MCV 68.8 L (80.0-100.0) fL MCH 20.6 L (25.0-35.0) pg MCHC 30.0 L (31.0-37.0) g/dL RDW 16.5 H (11.5-15.5) % Lymphocytes # 0.3 L (1.0-4.8) k/uL VBG HCO3 (24-28) mmol/L Sodium 122 L (137-145) mmol/L Potassium (3.5-5.1) mmol/L Chloride 88 L (98-107) mmol/L Carbon Dioxide (22-30) mmol/L BUN 5 L (9-20) mg/dL Creatinine 0.61 L (0.66-1.25) mg/dL Glucose (74-99) mg/dL POC Glucose (mg/dL) 125 H (75-99) mg/dL Osmolality (280-301) mosm/kg Plasma Lactic Acid [place] (0.7-2.0) mmol/L Total Bilirubin (0.2-1.3) mg/dL AST (17-59) U/L Urine Ketones (Negative) 09/17/18 Range/Units 09:17 RBC (4.30-5.90) m/uL Hgb (13.0-17.5) gm/dL Hct (39.0-53.0) % MCV (80.0-100.0) fL MCH (25.0-35.0) pg MCHC (31.0-37.0) g/dL RDW (11.5-15.5) % Lymphocytes # (1.0-4.8) k/uL VBG HCO3 (24-28) mmol/L Sodium 125 L (137-145) mmol/L Potassium (3.5-5.1) mmol/L Chloride (98-107) mmol/L Carbon Dioxide (22-30) mmol/L BUN (9-20) mg/dL Creatinine (0.66-1.25) mg/dL Glucose (74-99) mg/dL POC Glucose (mg/dL) (75-99) mg/dL Osmolality (280-301) mosm/kg Plasma Lactic Acid [place] (0.7-2.0) mmol/L Total Bilirubin (0.2-1.3) mg/dL AST (17-59) U/L Urine Ketones (Negative) Assessment and Plan Plan: -Severe hyponatremia secondary to severe intravascular volume depletion along with the portomania, IV fluids are presently being held because of her significant increase in serum sodium since last night from on 112 to 125. Probably can be restarted later today or tomorrow morning depending on nephrology recommendations. -Severe lactic is doses secondary to intravascular depletion initially did not believe patient has pneumonia although patient is very minimal infiltrate, with minimal probable bronchial thickening rather a bronchogram on the CAT scan after reviewing the CAT scan also started him back on Rocephin -Alcohol abuse and withdrawal: [facility] multivitamin [facility] -Anemia probably secondary to chronic alcoholism along with iron deficiency w e'll obtain ferritin levels -Chest pain noncardiac appears to be a secondary to peptic ulcer disease from alcoholism, patient was started on Protonix we'll repeat another set of troponin -Syncope: Secondary to severe intravascular depletion -Hypertension and the lab will be continued will hold off on losartan and amlodipine at this time. Patient will need DVT prophylaxis
--- NOTE | 2018-09-17 15:05 | CONS ---
CONSULTATION REASON FOR CONSULT: Hyponatremia. HISTORY OF PRESENT ILLNESS: The patient is a 53-year-old male who was admitted to the hospital last night with a history of altered mental status. The patient's brother brought him to the hospital. Patient does have a history of alcohol abuse. He drinks 6-8 beers, perhaps even more sometimes on a daily basis. He stated that he has had a slightly low sodium previously. The patient denies any new diuretics which was started recently. He does use Motrin. He has been having back pain which is more worse recently. The patient also admitted to occasional loose bowel movements, however, no significant vomiting. He denied loss of appetite. The serum sodium on admission was 113. The patient's lactic acid was elevated at about 7.5. He did get a L bolus of Ringer lactate, which was then continued at about 75 mL an hour. Serum sodium came up from 113 to 120 in about 10 hours and then this morning over the next 9 hours, it came up by 5 points again to 125. Mentation has apparently improved significantly since admission. Urine osmolality was 281, and random urine sodium was 54. Urine was positive for ketones. Serum alcohol was less than 10. PAST MEDICAL HISTORY: Significant for hyperlipidemia, hypertension. SOCIAL HISTORY: Positive for drug and alcohol abuse. No history of smoking or other drug abuse. MEDICATIONS: Prior to admission included atenolol, Zyrtec, Pepcid, iron, Motrin, Cozaar, Norvasc. ALLERGIES: INCLUDE COUGH FROM LISINOPRIL. PHYSICAL EXAMINATION: Patient is comfortable, awake. He is not in any acute distress. Patient is answering questions appropriately. He is alert and oriented x3. Blood pressure this morning was 118/94, heart rate 86 per minute. He is afebrile. Examination of the heart S1, S2. Examination of lungs bilateral breath sounds are heard. Abdomen is soft, nontender. Examination of lower extremities shows no significant edema. LABOR DELIVERY RN exam shows patient moving all 4 extremities. LABS: Sodium 122 this morning, potassium 4.0, chloride 88, BUN 5, serum creatinine 0.6, phosphorus 2.8, magnesium 2.3, calcium of 8.7, hemoglobin 7.3 g/dL. ASSESSMENT: 1. Hyponatremia appears to be hypovolemic as well as secondary to decreased urinary osmoles from excessive beer consumption/beer potomania. Serum sodium has come up to about 125 from 113. However, this is over about 20 hours. The initial rise was slightly rapid. However, the serum sodium at 25 is appropriate. I will continue to hold off on the fluids until this evening. The patient can eat and definitely the protein consumption will also help with the hyponatremia. No fluid restriction at this time. 2. Anemia, rule out gastrointestinal bleed. No active bleeding noted at this time. 3. Anion gap metabolic acidosis secondary to lactic acidosis, currently improved. PLAN: Repeat sodium this evening. The patient can eat. Continue to hold off on IV fluids until later on tonight. Thank you for this consultation. We will continue to follow the patient with you during his hospitalization. MMODL / IJN: [id number] /
[2018-09-17] MEDS: HEPARIN SODIUM,PORCINE 5,000 UNIT/ML 1 ML VIAL SQ SCH (15:52)
[2018-09-18] MEDS: HEPARIN SODIUM,PORCINE 5,000 UNIT/ML 1 ML VIAL SQ SCH ×4 (00:14→23:29)
[2018-09-18 06:10] LABS: Anisocytosis Slight; Basophils % (A) 0 %; Eosinophils # (A) 0.2 k/uL (0-0.7); Eosinophils % (A) 3 %; HCT 23.8 % (39.0-53.0); Hypochromasia Marked; Lymphocytes # (A) 0.4 k/uL (1.0-4.8); Lymphocytes % (A) 8 %; MCH 20.5 pg (25.0-35.0); MCHC 29.3 g/dL (31.0-37.0); MCV 70.1 fL (80.0-100.0); Mean Platelet Volume 6.8; Microcytosis Marked; Monocytes # (A) 0.6 k/uL (0-1.0); Monocytes % (A) 11 %; Neutrophils # (A) 3.9 k/uL (1.3-7.7); Neutrophils % (A) 74 %; Platelet Count 218 k/uL (150-450); RDW 16.7 % (11.5-15.5); WBC 5.2 k/uL (3.8-10.6)
[2018-09-18 06:24] LABS: ALT 47 U/L (21-72); AST 60 U/L (17-59); Albumin 3.9 g/dL (3.5-5.0); Alkaline Phosphatase 76 U/L (38-126); Anion Gap 10 mmol/L; Blood Urea Nitrogen 8 mg/dL (9-20); Calcium 8.8 mg/dL (8.4-10.2); Carbon Dioxide 26 mmol/L (22-30); Chloride 89 mmol/L (98-107); Glucose 100 mg/dL (74-99); Magnesium 2.1 mg/dL (1.6-2.3); Potassium 3.7 mmol/L (3.5-5.1); Sodium 125 mmol/L (137-145); Total Bilirubin 0.8 mg/dL (0.2-1.3)
[2018-09-18] MEDS ORDERED: Potassium Replacement Protocol 1 EACH MISC MISCELLANE PRN ×2 (06:35→07:11)
[2018-09-18] MEDS ORDERED: POTASSIUM CHLORIDE ER 20 MEQ TAB.ER PO SCH ×2 (07:00→08:00)
--- NOTE | 2018-09-18 07:13 | XR ---
EXAMINATION TYPE: XR chest 1V portable DATE OF EXAM: 09/18/2018 COMPARISON: 09/17/2018 HISTORY: Shortness of breath. Follow-up exam. TECHNIQUE: Single frontal view of the chest is obtained. FINDINGS: There are low lung volumes present. Cardia mediastinal silhouette is enlarged. Old fractur e deformities are seen of the posterior mid right ribs. No acute osseous pathology is seen. No focal consolidation, pleural effusion or pneumothorax. Scattered areas of platelike atelectasis have resolv ed. IMPRESSION: Hypoventilatory lungs with no acute cardiopulmonary process. Resolution of the previousl y seen platelike atelectasis.
[2018-09-18 07:29] LABS: Glucose,Whole Blood 133 mg/dL (75-99)
[2018-09-18 07:29] LABS: Glucose,Whole Blood 130 mg/dL (75-99)
[2018-09-18] MEDS: ATENOLOL 50 MG TAB PO SCH (08:02)
[2018-09-18] MEDS: THIAMINE 100 MG TAB PO SCH ×2 (08:02→15:36)
[2018-09-18] MEDS ORDERED: AZITHROMYCIN 500 MG TAB PO SCH (09:00)
--- NOTE | 2018-09-18 09:24 | P.PN ---
Subjective Progress Note Date: 09/18/18 Principal diagnosis: Severe hyponatremia This is a 53-year-old white male, history of alcohol abuse, patient drinks beer on a daily basis. Patient was seen in the ER last night mostly complaining of generalized chest pain, weakness, fatigue, malaise, patient has no headaches no blurred vision no dizziness, had no GI symptoms no nausea no vomiting no abdominal pain. Patient is not on any diuretics, he had no symptoms of nausea vomiting or diarrhea. Patient was given aspirin and nitroglycerin by EMS, did not seem to help him much. Patient was evaluated in the ER, and his workup was basically unremarkable except for low sodium, low serum osmolality, and urine osmolality was 228. His sodium on presentation was 113, and this morning is 122. Patient stated to me that he was told in the past that his sodium runs a bit low. But never had an admission for hyponatremia. Again the patient is not on any diuretics, he is not on any psychiatric medications, he is not diabetic, and he is not known to have any history of malignancy. Workup for the chest pain was basically nondiagnostic. Patient was found to have elevated lactic acid and elevated d-dimer. But CT of the chest was negative. No evidence of pulmonary embolism, there was evidence of bibasilar atelectasis. CT of the abdomen showed mild to moderate compression fracture of L1 level. Clinically however the patient had no back pain. In the ER, considering his elevated lactic acid, patient was given fluid boluses in the form of lactated Ringer's. His fluids were placed on hold when his sodium came back at 122 earlier this morning. During my evaluation, the patient was basically asymptomatic. He told me that he felt great, he had no chest pain, no shortness of breath, does not feel weak anymore, and he is basically back to his baseline. However his hemoglobin on admission was 8.5, and it is presently 7.3. Obviously the patient will need workup for his anemia which is likely acute. Patient denies any melena or hematemesis. Denies any history of anemia. Drug screen on admission was negative. On 09/18/2018 patient seen in follow-up in the intensive care unit. He is awake and alert, in no acute distress, oriented 3, he is currently on room air pulse ox of 97%, hemodynamically stable, afebrile, sinus rhythm with a rate of 96. No active DTs. Today's labs have been reviewed, showing white blood cell count 5.2, hemoglobin was 7.0, serum sodium is 125, up from 122 from 1800 yesterday on 09/17/2018. BUN is 8, creatinine is 0.67, last plasma lactic acid was 1.2, troponin was negative 1. Patient has no specific complaints, denies shortness of breath, denies any chest pain, neurologically intact, no signs of neurologic deficits, no seizures. His IVs have been discontinued, he is on empiric antibiotic coverage in the form of Rocephin, he is on lorazepam for CIWA protocol. Objective - Vital Signs Vital signs: Vital Signs Temp 98.7 F 09/18/18 08:00 Pulse 96 09/18/18 08:00 Resp 15 09/18/18 08:00 BP 152/93 09/18/18 08:00 Pulse Ox 97 09/18/18 08:00 Intake & Output 09/17/18 09/18/18 09/18/18 18:59 06:59 18:59 Intake Total 650 Output Total 585 1625 290 Balance 65 -1625 -290 Weight 85.8 kg Intake: Oral 650 Output: Urine 585 1625 290 Other: Voiding Method Indwelling Catheter Indwelling Catheter - Exam GENERAL EXAM: Alert, pleasant, 53-year-old white male on room air, with a pulse ox of 97%, comfortable in no apparent distress. HEAD: Normocephalic/atraumatic. EYES: Normal reaction of pupils, equal size. Conjunctiva pink, sclera white. NOSE: Clear with pink turbinates. THROAT: No erythema or exudates. NECK: No masses, no JVD, no thyroid enlargement, no adenopathy. CHEST: No chest wall deformity. Symmetrical expansion. LUNGS: Equal air entry with no crackles, wheeze, rhonchi or dullness. CVS: Regular rate and rhythm, normal S1 and S2, no gallops, no murmurs, no rubs ABDOMEN: Soft, nontender. No hepatosplenomegaly, normal bowel sounds, no guarding or rigidity. EXTREMITIES: No clubbing, no edema, no cyanosis, 2+ pulses and upper and lower extremities. MUSCULOSKELETAL: Muscle strength and tone normal. SPINE: No scoliosis or deformity SKIN: No rashes CENTRAL NERVOUS SYSTEM: Alert and oriented -3. No focal deficits, tone is normal in all 4 extremities. PSYCHIATRIC: Alert and oriented -3. Appropriate affect. Intact judgment and insight. - Labs CBC & Chem 7: 09/18/18 04:50 09/18/18 04:50 Labs: Abnormal Lab Results - Last 24 Hours (Table) 09/16/18 09/16/18 09/17/18 Range/Units 16:54 16:57 09:17 RBC (4.30-5.90) m/uL Hgb (13.0-17.5) gm/dL Hct (39.0-53.0) % MCV (80.0-100.0) fL MCH (25.0-35.0) pg MCHC (31.0-37.0) g/dL RDW (11.5-15.5) % Lymphocytes # (1.0-4.8) k/uL Sodium 125 L (137-145) mmol/L Chloride (98-107) mmol/L BUN (9-20) mg/dL Glucose (74-99) mg/dL POC Glucose (mg/dL) 133 H 130 H (75-99) mg/dL AST (17-59) U/L 09/17/18 09/18/18 09/18/18 Range/Units 18:00 04:50 04:50 RBC 3.40 L (4.30-5.90) m/uL Hgb 7.0 L (13.0-17.5) gm/dL Hct 23.8 L (39.0-53.0) % MCV 70.1 L (80.0-100.0) fL MCH 20.5 L (25.0-35.0) pg MCHC 29.3 L (31.0-37.0) g/dL RDW 16.7 H (11.5-15.5) % Lymphocytes # 0.4 L (1.0-4.8) k/uL Sodium 122 L 125 L (137-145) mmol/L Chloride 89 L (98-107) mmol/L BUN 8 L (9-20) mg/dL Glucose 100 H (74-99) mg/dL POC Glucose (mg/dL) (75-99) mg/dL AST 60 H (17-59) U/L Microbiology - Last 24 Hours (Table) 09/16/18 18:10 Blood Culture - Preliminary Blood No Growth after 24 hours 09/16/18 13:35 Blood Culture - Preliminary Blood No Growth after 24 hours Assessment and Plan Plan: 1 acute hyponatremia, possible underlying SIADH. Although it could be but no tito related hyponatremia and mostly related to excessive consumption of beer. Patient was noted to have hypoosmolar hyponatremia, and his urine osmolality was 228 on admission. With relatively elevated urine sodium. 2 possible chronic anemia since the patient is noted to be anemic today, and he seems to be on iron. This will need to be further investigated. To rule out underlying malignancy. GI consultation will be initiated. And stool will be checked for Hemoccult. In the meantime continue Protonix. 3 history of alcohol abuse, patient drinks beer on a daily basis. Continue alcohol withdrawal protocol. 4 acute lactic acidosis responded well to fluid boluses, no clear-cut evidence of infection, patient is empirically on antibiotics, cultures are pending, will continue antibiotics for now. Until cultures of blood and urine are available. Plan: Patient is hemodynamically stable, neurologically intact, no active DTs, serum sodium is improving, no acute events overnight, vital signs are stable, no fever or chills. We'll continue current treatment, nephrology is following. Today's chest x-ray has been reviewed, showed hypoventilatory lungs with no acute cardiopulmonary process. Patient is stable to transfer out of the intensive care unit today to general medical floor I performed a history & physical examination of the patient and discussed their management with my nurse practitioner, Pastora Anderson. I reviewed the nurse practitioner's note and agree with the documented findings and plan of care. Lung sounds are positive for clear breath sounds. The findings and the impression was discussed with the patient. I attest to the documentation by the nurse practitioner. Time with Patient: Less than 30
--- NOTE | 2018-09-18 09:27 | P.PN ---
Subjective Patient is seen in follow-up for hyponatremia. Sodium level was 113 on admission and did come up rapidly initially with IV fluids. Fluids were then discontinued his sodium level came down to 122 as of last night. It is up to 125 this morning. He is eating and drinking well. No vomiting or diarrhea. Hemodynamically stable. Good urine output. Vital signs are stable. General: The patient appeared well nourished and normally developed. HEENT: Head exam is unremarkable. Neck is without jugular venous distension. LUNGS: Lungs are clear to auscultation and percussion. Breath sounds decreased. HEART: Rate and Rhythm are regular. First and second heart sounds normal. No murmurs, rubs or gallops. ABDOMEN: Abdominal exam reveals normal bowel sounds. Non-tender and non- distended. No evidence of peritonitis. EXTREMITITES: No clubbing, cyanosis, or edema. Objective - Vital Signs Vital signs: Vital Signs Temp 98.7 F 09/18/18 08:00 Pulse 96 09/18/18 08:00 Resp 15 09/18/18 08:00 BP 152/93 09/18/18 08:00 Pulse Ox 97 09/18/18 08:00 Intake & Output 09/17/18 09/18/18 09/18/18 18:59 06:59 18:59 Intake Total 650 Output Total 585 1625 290 Balance 65 -1625 -290 Weight 85.8 kg Intake: Oral 650 Output: Urine 585 1625 290 Other: Voiding Method Indwelling Catheter Indwelling Catheter - Labs CBC & Chem 7: 09/18/18 04:50 09/18/18 04:50 Labs: Abnormal Lab Results - Last 24 Hours (Table) 09/16/18 09/16/18 09/17/18 Range/Units 16:54 16:57 09:17 RBC (4.30-5.90) m/uL Hgb (13.0-17.5) gm/dL Hct (39.0-53.0) % MCV (80.0-100.0) fL MCH (25.0-35.0) pg MCHC (31.0-37.0) g/dL RDW (11.5-15.5) % Lymphocytes # (1.0-4.8) k/uL Sodium 125 L (137-145) mmol/L Chloride (98-107) mmol/L BUN (9-20) mg/dL Glucose (74-99) mg/dL POC Glucose (mg/dL) 133 H 130 H (75-99) mg/dL AST (17-59) U/L 09/17/18 09/18/18 09/18/18 Range/Units 18:00 04:50 04:50 RBC 3.40 L (4.30-5.90) m/uL Hgb 7.0 L (13.0-17.5) gm/dL Hct 23.8 L (39.0-53.0) % MCV 70.1 L (80.0-100.0) fL MCH 20.5 L (25.0-35.0) pg MCHC 29.3 L (31.0-37.0) g/dL RDW 16.7 H (11.5-15.5) % Lymphocytes # 0.4 L (1.0-4.8) k/uL Sodium 122 L 125 L (137-145) mmol/L Chloride 89 L (98-107) mmol/L BUN 8 L (9-20) mg/dL Glucose 100 H (74-99) mg/dL POC Glucose (mg/dL) (75-99) mg/dL AST 60 H (17-59) U/L Microbiology - Last 24 Hours (Table) 09/16/18 18:10 Blood Culture - Preliminary Blood No Growth after 24 hours 09/16/18 13:35 Blood Culture - Preliminary Blood No Growth after 24 hours Assessment and Plan Plan: Assessment: 1. Hypovolemic hyponatremia improved with IV hydration. Also component of poor solute intake/beer potomania. Sodium level 125 today. 2. History of alcohol abuse. 3. Benign hypertension. Blood pressures high. 4. Anemia. Rule out iron deficiency. Plan: 1500 mL fluid restriction. Encourage oral intake. Repeat sodium level this evening. Check iron studies. Resume Cozaar. Monitor hemoglobin.
[2018-09-18] MEDS: LOSARTAN 25 MG TAB PO SCH (10:24)
--- NOTE | 2018-09-18 13:10 | P.PN ---
Subjective Progress Note Date: 09/17/18 53-year-old male with history of alcohol abuse, although although he denied using alcohol on daily basis it appears like patient does drink alcohol on a daily basis as he is having active withdrawals and that he admitted to the nursing staff he does drink alcohol on a daily basis came in with complains of for epigastric abdominal pain and retrosternal pain pressure-like sensation nonradiating denied any diaphoresis associated with that patient does have lightheadedness patient complains that he had a fall and hurt his back. Patient pain appears to be secondary to gastroesophageal reflux disease or peptic ulcer disease or musculoskeletal. Patient is found to be severely hyponatremic with serum sodium of 113. Patient drinks about 6-8 beers may be more every day. Patient creatinine went up to 125 today because of which I believe nephrology is holding off on IV fluids, patient is actively having withdrawals at this time patient is on Protonix thiamine multivitamin supplementation and patient is on Ativan CIWA protocol. Patient has a sitter at this time. Patient denies any smoking. Patient does have lactic acidosis although there is no evidence of infection patient has atelectasis in the lung the but no pneumonia no bronchitis vacation does have gurgling due to excess secretions, patient doesn't have any UTI patient will not require any antibiotics his lactic acidosis is secondary to intravascular 1 and depletion for which patient received IV fluids and lactic acid has come down from 7.5-3.5 on repeat the lactic acid again today. EKG did not show any acute ST-T wave changes facet of troponin is negative lipid [place] of troponin patient chest pain appears to be noncardiac. Patient says he fell yesterday which is secondary to his dizziness. 09/17/2018 Patient doesn't have much of alcohol withdrawal symptoms patient's serum sodium remains at 125 discussed with nephrology. Plan is to repeat serum sodium again today and if it doesn't improve start him on IV fluids at that time. Patient did not require any Ativan today. Patient doesn't have any significant withdrawals. Patient will transfer out of ICU. Constitutional: Denied any fatigue denied any fever. Cardio vascular: denied any chest pain, palpitations Gastrointestinal denied any nausea vomiting Pulmonary: Denied any shortness of breath cough Neurologic denied any new focal deficits All inpatient medications were reviewed and appropriate changes in these medications as dictated in the interval history and assessment and plan. Objective - Vital Signs Vital signs: Vital Signs Temp 98.7 F 09/18/18 08:00 Pulse 82 09/18/18 12:00 Resp 17 09/18/18 12:00 BP 135/80 09/18/18 12:00 Pulse Ox 95 09/18/18 12:00 Intake & Output 09/17/18 09/18/18 09/18/18 18:59 06:59 18:59 Intake Total 650 Output Total 585 1625 1000 Balance 65 -1625 -1000 Weight 85.8 kg Intake: Oral 650 Output: Urine 585 1625 1000 Other: Voiding Method Indwelling Catheter Indwelling Catheter Indwelling Catheter - Exam PHYSICAL EXAMINATION: GENERAL: The patient is alert and oriented x3, not in any acute distress. Patient does have a typical alcoholic pale appearance doesn't appear to have withdrawals HEENT: Pupils are round and equally reacting to light. EOMI. No scleral icterus. No conjunctival pallor. Normocephalic, atraumatic. No pharyngeal erythema. No thyromegaly. CARDIOVASCULAR: S1 and S2 present. No murmurs, rubs, or gallops. PULMONARY: Chest is clear to auscultation, no wheezing or crackles. ABDOMEN: Soft, nontender, nondistended, normoactive bowel sounds. No palpable organomegaly. MUSCULOSKELETAL: No joint swelling or deformity. EXTREMITIES: No cyanosis, clubbing, or pedal edema. NEUROLOGICAL: Gross neurological examination did not reveal any focal deficits. SKIN: No rashes. - Labs CBC & Chem 7: 09/18/18 04:50 09/18/18 04:50 Labs: Abnormal Lab Results - Last 24 Hours (Table) 09/16/18 09/16/18 09/17/18 Range/Units 16:54 16:57 18:00 RBC (4.30-5.90) m/uL Hgb (13.0-17.5) gm/dL Hct (39.0-53.0) % MCV (80.0-100.0) fL MCH (25.0-35.0) pg MCHC (31.0-37.0) g/dL RDW (11.5-15.5) % Lymphocytes # (1.0-4.8) k/uL Sodium 122 L (137-145) mmol/L Chloride (98-107) mmol/L BUN (9-20) mg/dL Glucose (74-99) mg/dL POC Glucose (mg/dL) 133 H 130 H (75-99) mg/dL AST (17-59) U/L 09/18/18 09/18/18 Range/Units 04:50 04:50 RBC 3.40 L (4.30-5.90) m/uL Hgb 7.0 L (13.0-17.5) gm/dL Hct 23.8 L (39.0-53.0) % MCV 70.1 L (80.0-100.0) fL MCH 20.5 L (25.0-35.0) pg MCHC 29.3 L (31.0-37.0) g/dL RDW 16.7 H (11.5-15.5) % Lymphocytes # 0.4 L (1.0-4.8) k/uL Sodium 125 L (137-145) mmol/L Chloride 89 L (98-107) mmol/L BUN 8 L (9-20) mg/dL Glucose 100 H (74-99) mg/dL POC Glucose (mg/dL) (75-99) mg/dL AST 60 H (17-59) U/L Microbiology - Last 24 Hours (Table) 09/16/18 18:10 Blood Culture - Preliminary Blood No Growth after 24 hours 09/16/18 13:35 Blood Culture - Preliminary Blood No Growth after 24 hours Assessment and Plan Plan: -Severe hyponatremia secondary to severe intravascular volume depletion along with the portomania, IV fluids are presently being held his serum sodium is 125. Further plan as mentioned above in the interval history -Severe lactic acidosis secondary to intravascular depletion initially did not believe patient has pneumonia although patient is very minimal infiltrate, with minimal probable bronchial thickening rather a bronchogram on the CAT scan after reviewing the CAT scan also started him back on Rocephin -Alcohol abuse and withdrawal: [facility] thi[facility] multivitamin supplementation -Anemia probably secondary to chronic alcoholism along with iron deficiency for the levels are low patient will need oral iron supplementation upon discharge -Chest pain noncardiac appears to be a secondary to peptic ulcer disease from alcoholism, troponins are negative. -Syncope: Secondary to severe intravascular depletion -Hypertension and the lab will be continued will hold off on losartan and amlodipine at this time. Blood pressure is well controlled Patient will need DVT prophylaxis
[2018-09-18 16:24] LABS: Iron Saturation 2.36 (15.00-50.00)
[2018-09-18 21:45] VITALS: RESP 20
[2018-09-19 05:23] VITALS: BP 151/77; PULSE 87; TEMP 99.5
[2018-09-19] MEDS: ATENOLOL 50 MG TAB PO SCH (08:20)
[2018-09-19] MEDS: THIAMINE 100 MG TAB PO SCH (08:20)
[2018-09-19] MEDS: LOSARTAN 25 MG TAB PO SCH (08:20)
[2018-09-19] MEDS: HEPARIN SODIUM,PORCINE 5,000 UNIT/ML 1 ML VIAL SQ SCH (08:20)
[2018-09-19 09:29] LABS: ALT 66 U/L (21-72); AST 82 U/L (17-59); Albumin 4.3 g/dL (3.5-5.0); Alkaline Phosphatase 78 U/L (38-126); Anion Gap 12 mmol/L; Blood Urea Nitrogen 7 mg/dL (9-20); Calcium 9.3 mg/dL (8.4-10.2); Carbon Dioxide 23 mmol/L (22-30); Chloride 93 mmol/L (98-107); Glucose 157 mg/dL (74-99); Potassium 4.2 mmol/L (3.5-5.1); Sodium 128 mmol/L (137-145); Total Protein 7.6 g/dL (6.3-8.2)
[2018-09-19] MEDS ORDERED: SODIUM CHLORIDE 0.9% 1,000 ML IV SCH (10:45)
--- NOTE | 2018-09-19 11:04 | P.PN ---
Subjective Patient is seen in follow-up for hyponatremia. Sodium level is gradually improving. It is up to 128 today. Oral intake is good. No vomiting or d iarrhea. Vital signs are stable. General: The patient appeared well nourished and normally developed. HEENT: Head exam is unremarkable. Neck is without jugular venous distension. LUNGS: Lungs are clear to auscultation and percussion. Breath sounds decreased. HEART: Rate and Rhythm are regular. First and second heart sounds normal. No murmurs, rubs or gallops. ABDOMEN: Abdominal exam reveals normal bowel sounds. Non-tender and non- distended. No evidence of peritonitis. EXTREMITITES: No clubbing, cyanosis, or edema. Objective - Vital Signs Vital signs: Vital Signs Temp 99.5 F 09/19/18 05:10 Pulse 87 09/19/18 05:10 Resp 20 09/19/18 08:00 BP 151/77 09/19/18 05:10 Pulse Ox 96 09/19/18 05:10 Intake & Output 09/18/18 09/19/18 09/19/18 18:59 06:59 18:59 Intake Total 300 Output Total 1000 Balance -1000 300 Intake: Oral 300 Output: Urine 1000 Other: Voiding Method Indwelling Catheter Toilet Toilet Urinal # Voids 0 # Bowel Movements 1 - Labs CBC & Chem 7: 09/18/18 04:50 09/19/18 08:34 Labs: Abnormal Lab Results - Last 24 Hours (Table) 09/18/18 09/18/18 09/19/18 Range/Units 04:50 16:22 08:34 Sodium 127 L 128 L (137-145) mmol/L Chloride 93 L (98-107) mmol/L BUN 7 L (9-20) mg/dL Glucose 157 H (74-99) mg/dL Iron 9 L (65-175) ug/dL Iron Saturation 2.36 L (15.00-50.00) AST 82 H (17-59) U/L Microbiology - Last 24 Hours (Table) 09/16/18 18:10 Blood Culture - Preliminary Blood No Growth after 48 hours 09/16/18 13:35 Blood Culture - Preliminary Blood No Growth after 48 hours Assessment and Plan Plan: Assessment: 1. Hypovolemic hyponatremia improved with IV hydration. Also component of poor solute intake/beer potomania. Sodium level 128 today. 2. History of alcohol abuse. 3. Benign hypertension. 4. Anemia. Severe iron deficiency noted. Plan: Maintain 1500 mL fluid restriction. Encouraged oral intake. IV iron 3 doses. First of today. Patient was started on normal saline this morning. Repeat electrolytes in the morning.
[2018-09-19] MEDS ORDERED: SODIUM FERRIC GLUCONAT-SUCROSE 125 MG in SODIUM CHLORIDE 0.9% 100 ML IVPB SCH (12:00)
--- NOTE | 2018-09-19 12:29 | PN ---
PROGRESS NOTE DATE OF SERVICE: 09/19/2018 This is a 53-year-old male who was admitted with a diagnosis of severe hyponatremia thought to be secondary to alcohol abuse. The patient was in the ICU for a couple days while his hyponatremia was being corrected. Anyway, the patient is doing much better. He is walking in the hallway. Physical therapy is walking with the patient. The patient could have beer potomania secondary to excessive consumption of the beer. Anyway, the patient is improved significantly. In addition to the hyponatremia, he has a history of chronic anemia, history of alcohol abuse, acute lactic acidosis and some other unrelated medical problems. Denies any complaints today. No shortness of breath, chest pain, chest discomfort, cough, wheezing, phlegm production, nausea, vomiting, diarrhea, or any other complaint for that matter. As I mentioned, he was walking in the hallway with physical therapy, looking much improved. PHYSICAL EXAMINATION: VITAL SIGNS: Current vital signs include a temperature 99.5, heart rate 87, respiratory rate 20, blood pressure 151/77, mean 101, room air saturation 96%. GENERAL: Appears in no acute distress. HEENT: Examination is grossly unremarkable. Mucous membranes are moist. No oral lesions. NECK: Supple. Full range of motion. No adenopathy or thyromegaly. Neck veins are flat. CARDIOVASCULAR: Examination reveals regular rhythm and rate. Heart rate mid 80s. S1, S2 normal. No S3, S4 or murmur. LUNGS: Reveal clear breath sounds. No wheezes, rhonchi, or crackles. He is not requiring any supplemental oxygen. ABDOMEN: Soft. Bowel sounds are heard. EXTREMITIES: Are intact. No cyanosis, clubbing, or edema. SKIN: Without rash. NEUROLOGIC: Examination is brief but nonfocal. LABS: Labs are reviewed. Sodium today is 128, potassium 4.2, chloride 93, CO2 is 23. Anion gap is 12. BUN and creatinine were 7 and 0.70. The rest of the labs look pretty good at this time. X-RAY: No recent x-rays to report. The last chest x-ray was done yesterday. It shows no acute cardiopulmonary abnormality. MEDICATIONS: Medications are reviewed. MICROBIOLOGY: Microbiology is negative. ASSESSMENT: 1. Severe hyponatremia, likely secondary to beer potomania. Currently, sodium is much improved. 2. Chronic anemia. 3. History of alcohol abuse. 4. Rule out alcohol withdrawal syndrome. 5. Acute lactic acidosis. 6. History of hypertension. 7. Degenerative joint disease. 8. History of allergic rhinitis. PLAN: The patient is doing well. We will continue to follow. Sodium today was improved. The patient is alert and awake without requiring any supplemental oxygen. No chest pain or chest discomfort or respiratory issues of cough, wheezing, shortness of breath or phlegm production. No additional recommendations are made at this time. MMODL / IJN: [id number] /
--- NOTE | 2018-09-19 12:35 | XR ---
EXAMINATION TYPE: XR chest 1V portable DATE OF EXAM: 09/19/2018 COMPARISON: Prior chest x-ray 09/18/2018 HISTORY: Shortness of breath TECHNIQUE: Single frontal view of the chest is obtained. FINDINGS: The patient is rotated. Posterior sixth and seventh ribs on the right shoulder fractures. H eart size is stable. No evident airspace disease, pneumothorax, or pleural effusion. IMPRESSION: No acute process.
--- NOTE | 2018-09-19 12:53 | P.DS ---
Providers Date of admission: 09/16/18 14:43 Attending physician: Luis M Beavers Consults: 09/16/18 14:53 Consult Physician Stat Consulting Provider: Bobby Escobar Consult Reason/Comments: Hyponatremia Do you want consulting provider notified?: Yes Consult Physician Stat Consulting Provider: Gabino Stuart Consult Reason/Comments: ICU management Do you want consulting provider notified?: Yes Primary care physician: [facility] Course: 53-year-old male with history of alcohol abuse, although although he denied using alcohol on daily basis it appears like patient does drink alcohol on a daily basis as he is having active withdrawals and that he admitted to the nursing staff he does drink alcohol on a daily basis came in with complains of for epigastric abdominal pain and retrosternal pain pressure-like sensation nonradiating denied any diaphoresis associated with that patient does have lightheadedness patient complains that he had a fall and hurt his back. Patient pain appears to be secondary to gastroesophageal reflux disease or peptic ulcer disease or musculoskeletal. Patient is found to be severely hyponatremic with serum sodium of 113. Patient drinks about 6-8 beers may be more every day. Patient creatinine went up to 125 today because of which I believe nephrology is holding off on IV fluids, patient is actively having withdrawals at this time patient is on Protonix thiamine multivitamin supplementation and patient is on Ativan CIWA protocol. Patient has a sitter at this time. Patient denies any smoking. Patient does have lactic acidosis although there is no evidence of infection patient has atelectasis in the lung the but no pneumonia no bronchitis vacation does have gurgling due to excess secretions, patient doesn't have any UTI patient will not require any antibiotics his lactic acidosis is secondary to intravascular 1 and depletion for which patient received IV fluids and lactic acid has come down from 7.5-3.5 on repeat the lactic acid again today. EKG did not show any acute ST-T wave changes facet of troponin is negative lipid [place] of troponin patient chest pain appears to be noncardiac. Patient says he fell yesterday which is secondary to his dizziness. 09/18/2018 Patient doesn't have much of alcohol withdrawal symptoms patient's serum sodium remains at 125 discussed with nephrology. Plan is to repeat serum sodium again today and if it doesn't improve start him on IV fluids at that time. Patient did not require any Ativan today. Patient doesn't have any significant withdrawals. Patient will transfer out of ICU. 09/19/2018 Patient is clinically doing well has a serum odium went up to 128. Patient will be started on IV fluids will continue untill his discharge today. Patient was excessively counseled that she cannot drink of beer if he can use to drink beer his serum sodium will go down again. Patient will be discharged on iron supplementation and MiraLAX for constipation. May benefit from outpatient phy sical therapy comparing of back pain which is chronic. Fluid restricted diet at home. PHYSICAL EXAMINATION: GENERAL: The patient is alert and oriented x3, not in any acute distress. Patient does have a typical alcoholic pale appearance doesn't appear to have withdrawals HEENT: Pupils are round and equally reacting to light. EOMI. No scleral icterus. No conjunctival pallor. Normocephalic, atraumatic. No pharyngeal erythema. No thyromegaly. CARDIOVASCULAR: S1 and S2 present. No murmurs, rubs, or gallops. PULMONARY: Chest is clear to auscultation, no wheezing or crackles. ABDOMEN: Soft, nontender, nondistended, normoactive bowel sounds. No palpable organomegaly. MUSCULOSKELETAL: No joint swelling or deformity. EXTREMITIES: No cyanosis, clubbing, or pedal edema. NEUROLOGICAL: Gross neurological examination did not reveal any focal deficits. SKIN: No rashes. Assessment and Plan Plan: -Severe hyponatremia secondary to severe intravascular volume depletion along with the portomania, IV fluids are presently being held his serum sodium is 128. Further plan as mentioned above in the interval history -Severe lactic acidosis secondary to intravascular depletion , possibility of pneumonia is low there is a mild infiltrate for which he received antibiotics and did not do believe we will need to continue antibiotics. -Alcohol abuse and withdrawal: Did not require any Ativan here today. -Anemia probably secondary to chronic alcoholism along with iron deficiency for the levels are low patient will need oral iron supplementation upon discharge -Chest pain noncardiac appears to be a musculoskeletal -Syncope: Secondary to severe intravascular depletion -Hypertension and the lab will be continued will hold off on losartan and amlodipine at this time. Blood pressure is well controlled -Chronic low back pain Patient Condition at Discharge: Critical Plan - Discharge Summary Discharge Rx Participant: Yes New Discharge Prescriptions: New Thiamine [Vitamin B-1] 100 mg PO BID-W/MEALS #30 tab Continue Losartan Potassium [Cozaar] 25 mg PO DAILY Ibuprofen [Motrin] 800 mg PO Q6H PRN PRN Reason: Pain Atenolol 100 mg PO DAILY Fluticasone Nasal [place] [Flonase Nasal [place]] 2 spr EA NOSTRIL DAILY Ferrous Sulfate [Iron (65 MG Elemental)] 325 mg PO BID Famotidine [Pepcid] 20 mg PO BID Cetirizine HCl [Zyrtec] 10 mg PO DAILY Discontinued amLODIPine [Norvasc] 10 mg PO DAILY Discharge Medication List Atenolol 100 mg PO DAILY 09/16/18 [History] Cetirizine HCl [Zyrtec] 10 mg PO DAILY 09/16/18 [History] Famotidine [Pepcid] 20 mg PO BID 09/16/18 [History] Ferrous Sulfate [Iron (65 MG Elemental)] 325 mg PO BID 09/16/18 [History] Fluticasone Nasal [place] [Flonase Nasal [place]] 2 spr EA NOSTRIL DAILY 09/16/18 [History] Ibuprofen [Motrin] 800 mg PO Q6H PRN 09/16/18 [History] Losartan Potassium [Cozaar] 25 mg PO DAILY 09/16/18 [History] Thiamine [Vitamin B-1] 100 mg PO BID-W/MEALS #30 tab 09/19/18 [Rx] Follow up Appointment(s)/Referral(s): [facility],Clinic [Primary Care Provider] - 09/27/18 8:00 am Patient Instructions/Handouts: Hyponatremia (DC), Alcohol Withdrawal (DC), Lactic Acidosis (GEN) Activity/Diet/Wound Care/Special Instructions: Please follow up with the [facility] for outpatient physical therapy. Discharge Disposition: HOME SELF-CARE
== END 2018-09-19 14:24 | disposition home or self-care (01) | DRG 641 ==
LOC: EC 10:35 → SUPCPDRO 10:35 → 2SICU 14:43 → 4MS4W 09-18 12:58
PROVIDERS: ADMIT Internal Medicine; ATTEND Internal Medicine
DX: E87.1 Hypo-osmolality and hyponatremia (principal); M48.56XA Collapsed vertebra, not elsewhere classified, lumbar region, initial encounter for fracture; E87.2 Acidosis; E86.0 Dehydration; F10.10 Alcohol abuse, uncomplicated; E86.1 Hypovolemia; R53.81 Other malaise; R07.89 Other chest pain; F19.10 Other psychoactive substance abuse, uncomplicated; D53.9 Nutritional anemia, unspecified; I10 Essential (primary) hypertension; R55 Syncope and collapse; J30.9 Allergic rhinitis, unspecified; D50.9 Iron deficiency anemia, unspecified; E78.5 Hyperlipidemia, unspecified; F41.9 Anxiety disorder, unspecified; G89.29 Other chronic pain; K59.00 Constipation, unspecified; M19.90 Unspecified osteoarthritis, unspecified site; Z79.899 Other long term (current) drug therapy; Z88.8 Allergy status to other drugs, medicaments and biological substances
CPT/HCPCS: 36415; 71045; 71046; 71275; 74176; 80048; 80053; 80320; 80329; 81003; 82550; 82728; 82803; 83520; 83540; 83550; 83605; 83690; 83735; 83930; 83935; 84100; 84295; 84300; 84484; 85025; 85379; 85610; 85730; 87040; 93005; 94640; 96361; 96372; 96374; 96375; 96376; 99291

== ENCOUNTER → 2020-01-09 | Day surgery (SDC) | payer OTHER ==
[2020-01-07 11:33] VITALS: BMI 27.2
[~2020-01-09] MED LIST: SIMETHICONE 40 MG/0.6 ML DROPS 2,000 MG/30 ML BOTTLE PO ONE
[2020-01-09 07:12] VITALS: BP 208/98; PULSE 69; RESP 14; TEMP 97.2
[2020-01-09 07:58] LABS: Basophils % (A) 1 %; Eosinophils # (A) 0.2 k/uL (0-0.7); Eosinophils % (A) 3 %; HGB 15.7 gm/dL (13.0-17.5); Lymphocytes # (A) 0.6 k/uL (1.0-4.8); Lymphocytes % (A) 9 %; MCH 31.2 pg (25.0-35.0); MCHC 33.4 g/dL (31.0-37.0); MCV 93.3 fL (80.0-100.0); Mean Platelet Volume 7.4; Monocytes # (A) 0.5 k/uL (0-1.0); Monocytes % (A) 8 %; Neutrophils # (A) 5.2 k/uL (1.3-7.7); Neutrophils % (A) 78 %; Platelet Count 261 k/uL (150-450); RBC 5.04 m/uL (4.30-5.90); RDW 11.8 % (11.5-15.5); WBC 6.7 k/uL (3.8-10.6)
== END ==
LOC: ORWHC2ENDO 06:37
PROVIDERS: ATTEND Internal Medicine Gastroenterology
DX: D50.9 Iron deficiency anemia, unspecified (principal)
CPT/HCPCS: 85025; 91110